=== PATIENT | female | born 1985 | race Caucasian/White ===

== ENCOUNTER 2016-04-04 01:25 | Emergency (ER) | payer OTHER ==
[2016-04-04 01:52] VITALS: BP 136/74; PULSE 112; TEMP 97.7; BMI 28.3
--- NOTE | 2016-04-04 03:25 | PDOC ---
History of Present Illness - General Chief Complaint: Abscess Boil Stated Complaint: RIGHT SIDE RASH Time Seen by Provider: 04/04/16 02:34 - History of Present Illness Initial Comments: 04/04/16 03:24 CHIEF COMPLAINT: Abscess to right axilla HISTORY OF PRESENT ILLNESS: 30-year-old female with history of asthma presents to ED with worsening abscess to right axilla. Patient states that she was seen 4 days ago by her primary care doctor and was given Bactrim. She has taken Bactrim every day as prescribed but the abscess has become worse. Denies any fever, nausea, vomiting, diarrhea, chills, but states that the pain is much worse now and the abscess has grown bigger. She has applied hot compresses daily and has slept with a heating pad to the abscess "to help bring up the infection." No recent travel or sick contacts. PAST MEDICAL HISTORY: Denies past medical history FAMILY HISTORY: Denies SOCIAL HISTORY: Denies tobacco, alcohol, illicit drug use. SURGICAL HISTORY: Denies ALLERGIES: cephalosporins REVIEW OF SYSTEMS General/Constitutional: Denies fever or chills. Denies weakness, weight change. HEENT: Denies change in vision. Denies ear pain or discharge. Denies sore throat. Cardiovascular: Denies chest pain or shortness of breath. Respiratory: Denies cough, wheezing, or hemoptysis. Gastrointestinal: Denies nausea, vomiting, diarrhea or constipation. Denies rectal bleeding. Genitourinary: Denies dysuria, frequency, or change in urination. Musculoskeletal: Denies joint or muscle swelling or pain. Denies neck or back pain. Skin: Abscess to R armpit. Denies rash or easy bruising. Neurologic: Denies headache, vertigo, loss of consciousness, or loss of sensation. PHYSICAL EXAM General Appearance: Well-appearing, appropriately dressed. No apparent distress , no intoxication. HEENT: EOMI, PERRLA, normal voice. No conjunctival pallor. No photophobia, scleral icterus. Respiratory/Chest: Lungs CTAB. Cardiovascular: RRR. S1, S2. Gastrointestinal/Abdominal: Normal bowel sounds. Abdomen soft, non-distended. Musculoskeletal/Extremities: Normal inspection. FROM of all extremities, normal capillary refill. Pelvis Stable. No CVA tenderness. No tenderness to extremities, pedal edema, swelling, erythema or deformity. Integumentary: 3cm x 5 cm indurated erythematous abscess to R axilla. No surrounding erythema or streaking. Appropriate color, dry, warm. No cyanosis, erythema, jaundice or rash Neurologic: web offset press feeder II-XII intact. Fully oriented, alert. Appropriate mood/affect. Motor strength 5/5. No appreciable EOM palsy, facial droop or sensory deficit. 04/04/16 04:37 Past History - Past Medical History Allergies/Adverse Reactions: Allergies Allergy/AdvReac Type Severity Reaction Status Date / Time Cephalosporins Allergy Verified 04/04/16 01:49 Home Medications: Ambulatory Orders Etanercept [Enbrel] 25 mg SQ WEEKLY 08/25/13 Albuterol Sulfate Inhaler - [Ventolin HFA Inhaler -] 2 inh IH Q6H #1 inh Sulfamethoxazole/Trimethoprim [Bactrim Ds -] 1 tab PO BID 04/04/16 Suicide Attempt (Hx): No - Psycho/Social/Smoking Cessation Hx Anxiety: No Suicidal Ideation: No Smoking History: Never smoked Number of Cigarettes Smoked Daily: 0 Hx Alcohol Use: No Drug/Substance Use Hx: No Substance Use Type: None *Physical Exam - Vital Signs Last Vital Signs Temp Pulse Resp BP Pulse Ox 97.7 F 112 H 20 136/74 99 04/04/16 01:50 04/04/16 01:50 04/04/16 01:50 04/04/16 01:50 04/04/16 01:50 Procedures - Consent Consent obtained: Verbal - Incision and Drainage I&D Site: Right: Axilla Betadine cleansed: Yes Anesthesia: 2% Lidocaine w/ Epi Volume(ml): 6 Blade Size: 11 Attempts: 1 Iodinated Packin/2 in (5 cm) Dressing: Yes (telfa, covered with dry gauze) Medical Decision Making - Medical Decision Making 04/04/16 05:46 30 yo F with hx of asthma presents to ED with abscess to R axilla. -I&D (see procedure note) Advised patient to continue taking abx as prescribed by PCP. Advised patient to keep appointment with infectious disease doctor for further evaluation of recurrent abscesses. Advised patient of signs and symptoms for return to ER; patient verbalized understanding and agrees to plan. *DC/Admit/Observation/Transfer Diagnosis at time of Disposition: Abscess - Discharge Dispostion Admit: No - Referrals Referrals: Lane Jones MD [Primary Care Provider] - - Patient Instructions Printed Discharge Instructions: DI for Incision and Drainage of a Skin Abscess Additional Instructions: As discussed, please return in 48 hours for reevaluation/removal of packing. Please finish taking the medication that your doctor prescribed. Please keep your appointment with the infectious disease doctor on . As discussed, if you experience fever, nausea, vomiting, diarrhea, or see any new redness, swelling, warmth, or streaking to the area of the abscess, please return to the ER immediately.
== END 2016-04-04 04:37 | disposition home or self-care (01) ==
LOC: JER 01:25
PROC: 0X943ZZ Drainage of Right Axilla, Percutaneous Approach (ICD-10-PCS; principal; 2016-04-04)
DX: L02.411 Cutaneous abscess of right axilla (principal)
CPT/HCPCS: 10060; 87070; 87186; 87205; 99282-25

== ENCOUNTER 2016-04-06 20:17 | Emergency (ER) | payer OTHER ==
[2016-04-06 20:30] VITALS: BP 130/79; PULSE 91; TEMP 97.6; BMI 35.9
--- NOTE | 2016-04-06 21:02 | PDOC ---
Suture Removal/Wound Check HPI - History of Present Illness Chief Complaint: Revisit,Wound Recheck Stated Complaint: FOLLOW UP Time Seen by Provider: 04/06/16 20:27 History Source: Yes: Patient Exam Limitations: Yes: No Limitations Date of Last ED visit: 04/04/16 - Previous ED Treatment Type of procedure performed on last visit: Yes: I&D of Abscess Past History - Travel Traveled outside of the country in the last 30 days: No Close contact w/someone who was outside of country & ill: No - Past Medical History Allergies/Adverse Reactions: Allergies Cephalosporins Allergy (Verified 04/06/16 20:27) Home Medications: Ambulatory Orders Etanercept [Enbrel] 25 mg SQ WEEKLY 08/25/13 Albuterol Sulfate Inhaler - [Ventolin HFA Inhaler -] 2 inh IH Q6H #1 inh Sulfamethoxazole/Trimethoprim [Bactrim Ds -] 1 tab PO BID 04/04/16 - Social History Smoking Status: Never smoked Number of Ciarettes Per Day: 0 Suture Removal/Wound Check PE - Physical Exam Laceration/Wound Check Symptoms: reports: Discharge ( scant drainage of pus), Improved. denies: Pain, Fever, Chills, Redness Pain Intensity: 2 Current Severity Level: Mild Maximum Severity Level: Mild Location of Laceration/Wound: right: Arm (axilla) Pain Radiation: None *Review of Systems - Review of Systems Constitutional: No: Chills, Fever Integumentary: Yes: See HPI Medical Decision Making - Medical Decision Making 04/06/16 21:06 A/P: 30 year old female seen for wound check. No active drainage. No surrounding erythema or lymphadenopathy. -Advised warm compresses -Continue abx (wound culture + for MRSA) -Return precautions reviewed *DC/Admit/Observation/Transfer Diagnosis at time of Disposition: Abscess, Wound check, abscess - Discharge Dispostion Disposition: HOME Condition at time of disposition: Good Admit: No - Referrals Referrals: Lane Jones MD [Primary Care Provider] - 3 days - Patient Instructions Printed Discharge Instructions: DI for Skin Abscess Additional Instructions: -You were seen today for a check of your wound after incision & drainage of an abscess. -Your wound is healing well. -Apply warm compresses 5 times a day to promote continued drainage and healing. -Complete your antibiotics as prescribed. -Take ibuprofen if needed for pain. -Follow up with Dr. Jones in 2-3 days. -Return here for any concerning symptoms, especially fever or redness at the site. - Post Discharge Activity Work/School Note: Back to Work
== END 2016-04-06 22:04 | disposition home or self-care (01) ==
LOC: JERFT 20:17
DX: Z09 Encounter for follow-up examination after completed treatment for conditions other than malignant neoplasm (principal); L02.411 Cutaneous abscess of right axilla; B95.62 Methicillin resistant Staphylococcus aureus infection as the cause of diseases classified elsewhere
CPT/HCPCS: 99281-25

== ENCOUNTER 2021-03-12 09:04 | Emergency (ER) | payer OTHER ==
[2021-03-12] MEDS ORDERED: ACETAMINOPHEN 500 MG TABLET (FP) PO ONE (09:35)
[2021-03-12 09:43] VITALS: BP 138/64; PULSE 92; TEMP 98.9; BMI 30.2
[2021-03-12] MEDS ORDERED: ACETAMINOPHEN 500 MG TABLET (FP) ONE (09:46)
== END 2021-03-12 10:32 | disposition home or self-care (01) ==
LOC: FER 09:04
DX: R07.89 Other chest pain (principal)
CPT/HCPCS: 71046-TC-FY; 93005; 99284-25

== ENCOUNTER 2022-09-25 20:48 | Emergency (ER) | payer OTHER ==
[2022-09-25 21:06] VITALS: BP 139/76; PULSE 103; RESP 16; TEMP 98; BMI 30.2
== END 2022-09-25 23:44 | disposition home or self-care (01) ==
LOC: FER 20:48
DX: M79.604 Pain in right leg (principal); R20.8 Other disturbances of skin sensation
CPT/HCPCS: 93971-TC; 99284-25

== ENCOUNTER 2022-12-17 17:17 | Emergency (ER) | payer OTHER ==
[2022-12-17 17:28] VITALS: BP 125/75; PULSE 81; RESP 17; TEMP 98.2; BMI 28.3
[2022-12-17] MEDS ORDERED: ONDANSETRON *ODT* 4 MG TABLET SL ONE (17:44)
[2022-12-17] MEDS ORDERED: FAMOTIDINE 10 MG TABLET PO ONE (17:44)
[2022-12-17] MEDS ORDERED: MAG HYDROX/AL HYDROX/SIMETH -MYLANTA- ORAL SUSPENSION PO ONE (17:44)
[2022-12-17] MEDS ORDERED: ACETAMINOPHEN 325 MG TABLET (FP) PO ONE (17:44)
[2022-12-17] MEDS ORDERED: FAMOTIDINE 20 MG TABLET ONE (17:48)
[2022-12-17] MEDS ORDERED: ONDANSETRON *ODT* 4 MG TABLET ONE (17:49)
[2022-12-17] MEDS ORDERED: ACETAMINOPHEN 650 MG/20.3 ML ORAL SOLUTION (CUPS) ONE (17:49)
[2022-12-17] MEDS ORDERED: MAG HYDROX/AL HYDROX/SIMETH 30 ML UNIT-DOSE CUP ONE (17:50)
[2022-12-17] MEDS ORDERED: ACETAMINOPHEN 500 MG TABLET (FP) ONE (17:52)
== END 2022-12-17 18:51 | disposition home or self-care (01) ==
LOC: FER 17:17
DX: R10.13 Epigastric pain (principal); R14.0 Abdominal distension (gaseous)
CPT/HCPCS: 99283-25; Q0162